=== PATIENT | female | born 1930 | race Caucasian/White ===

== ENCOUNTER 2018-06-22 09:21 | Emergency (ER) | payer OTHER ==
[2018-06-22 09:41] VITALS: TEMP 97.2
[2018-06-22 12:01] VITALS: RESP 20
[2018-06-22 12:02] VITALS: BP 136/116; PULSE 81; O2SAT 94
== END 2018-06-22 11:54 | disposition home or self-care (01) | DRG 204 ==
LOC: ED 09:21
DX: R06.02 Shortness of breath (principal)
CPT/HCPCS: 71045; 93005; 99284

== ENCOUNTER 2018-09-30 23:56 | Emergency (ER) | payer OTHER ==
[2018-09-30] MEDS ORDERED: DEXTROSE/SALINE 0.45% 1,000 ML IV ONE (23:59)
[2018-10-01 00:22] LABS: BASOPHILS % (AUTO) 0 % (0-3); EOSINOPHILS % (AUTO) 0 % (0-9); HEMATOCRIT 37 % (35-47); HEMOGLOBIN 12.1 gm/dl (12.0-15.5); LYMPHOCYTES % (AUTO) 8.8 % (10-50); MEAN CORPUSCULAR HEMOGLOBIN 31.5 pg (27.0-32.0); MEAN CORPUSCULAR HGB CONC 32.6 gm/dl (32.0-36.0); MEAN CORPUSCULAR VOLUME 97 fL (81-99); MONOCYTES % (AUTO) 7.5 % (0-12); NEUTROPHILS % (AUTO) 83.1 % (37-80)
[2018-10-01] MEDS ORDERED: METOPROLOL TARTRATE 25 MG TAB ONE (00:30)
[2018-10-01] MEDS ORDERED: METOPROLOL SUCCINATE 50 MG ER TAB ONE (00:33)
[2018-10-01 00:42] LABS: ALBUMIN 3.6 gm/dl (3.4-5.0); BILIRUBIN,TOTAL 0.8 mg/dl (0.2-1.0); CALCIUM 9.2 mg/dl (8.5-10.1); CARBON DIOXIDE 22.7 mEq/L (21-32); CREATININE 1.46 mg/dl (0.60-1.00); POTASSIUM 4.3 mMol/L (3.5-5.1); TOTAL PROTEIN 6.8 gm/dl (6.4-8.2)
[2018-10-01 00:44] LABS: INR 2.05 (0.86-1.12)
[2018-10-01 00:50] LABS: APPEARANCE,URINE Slightly Cloudy; BILIRUBIN,URINE NEGATIVE (NEGATIVE); COLOR,URINE Yellow; GLUCOSE, URINE (UA) NEGATIVE (NEGATIVE); KETONES,URINE TRACE (NEGATIVE); LEUKOCYTE ESTERASE ,URINE TRACE (NEGATIVE); NITRATE,URINE NEGATIVE (NEGATIVE); OCCULT BLOOD,URINE TRACE LYSED (NEG-TRACE); UROBILINOGEN,URINE 0.2 (0.2-1.0 EU)
[2018-10-01 01:02] LABS: EPITHELIAL CELLS 0-2 (SQUAMOUS); RBC,URINE 0-2 (0-3AV/HPF)
[2018-10-01 01:03] LABS: BACTERIA 2+ (< 1+); CRYSTALS NEGATIVE (0-3 AVE/HPF)
[2018-10-01] MEDS ORDERED: METOPROLOL SUCCINATE 50 MG ER TAB PO ONE (01:07)
[2018-10-01 02:06] VITALS: BP 159/108; PULSE 111; RESP 20; O2SAT 93
[2018-10-01] MEDS ORDERED: METOPROLOL SUCCINATE 50 MG ER TAB PO SCH (09:00)
== END 2018-10-01 01:53 | disposition home or self-care (01) | DRG 641 ==
LOC: ED 23:56
DX: E16.2 Hypoglycemia, unspecified (principal); N39.0 Urinary tract infection, site not specified; I50.9 Heart failure, unspecified; E11.9 Type 2 diabetes mellitus without complications; Z79.01 Long term (current) use of anticoagulants
CPT/HCPCS: 36415; 80053; 81001; 82962; 83880; 85025; 85610; 87077; 87088; 87186; 93005; 96365; 99284; 99285; A9270-GY

== ENCOUNTER 2018-10-03 23:02 | Observation (INO) | payer OTHER ==
[2018-10-03] MEDS ORDERED: DEXTROSE 50% 1 VIAL SOL IV ONE ×2 (23:10)
[2018-10-03] MEDS ORDERED: DEXTROSE/SALINE 0.45/KCL 20MEQ 1,000 ML/1,000 ML SOL IV ONE (23:12)
[2018-10-03] MEDS ORDERED: POTASSIUM CHLORIDE 2 MEQ/ML SOL IV ONE (23:28)
[2018-10-03 23:40] LABS: HEMATOCRIT 35 % (35-47); HEMOGLOBIN 11.2 gm/dl (12.0-15.5); MEAN CORPUSCULAR HEMOGLOBIN 30.6 pg (27.0-32.0); MEAN CORPUSCULAR HGB CONC 31.6 gm/dl (32.0-36.0); MEAN CORPUSCULAR VOLUME 97 fL (81-99)
[2018-10-03 23:48] LABS: CALCIUM 8.5 mg/dl (8.5-10.1); CARBON DIOXIDE 25.2 mEq/L (21-32); CREATININE 1.52 mg/dl (0.60-1.00); POTASSIUM 3.3 mMol/L (3.5-5.1)
[2018-10-04 00:22] LABS: BAND NEUTROPHILS % (MANUAL) 11 %; BASOPHILS % (MANUAL) 0 % (0-3); EOSINOPHILS % (MANUAL) 1 % (0-9); LYMPHOCYTES % (MANUAL) 3 % (10-50); MONOCYTES % (MANUAL) 2 % (0-12); NEUTROPHILS % (MANUAL) 83 % (37-80)
[2018-10-04 00:23] LABS: OVALOCYTES PRESENT; POIKILOCYTOSIS MOD AMT
[2018-10-04] MEDS ORDERED: DEXTROSE/SALINE 0.45/KCL 20MEQ 1,000 ML/1,000 ML SOL IV SCH (00:45)
[2018-10-04 01:17] VITALS: RESP 24
[2018-10-04] MEDS ORDERED: LEVOTHYROXINE SODIUM 88 MCG TAB PO SCH (07:00)
[2018-10-04 07:18] LABS: CARBON DIOXIDE 22.8 mEq/L (21-32); CREATININE 1.43 mg/dl (0.60-1.00); POTASSIUM 3.7 mMol/L (3.5-5.1)
[2018-10-04 07:55] LABS: INR 3.9 (0.86-1.12)
[2018-10-04] MEDS ORDERED: SODIUM CHLORIDE 0.9% FLUSH 10 ML SOL IV SCH (08:00)
[2018-10-04] MEDS ORDERED: METOPROLOL SUCCINATE 25 MG TAB.ER.24H PO SCH (09:00)
[2018-10-04] MEDS ORDERED: NITROFURANTOIN 100 MG CAP PO SCH (09:00)
[2018-10-04] MEDS ORDERED: LOSARTAN POTASSIUM 50 MG TAB PO SCH (09:00)
[2018-10-04 10:13] VITALS: BP 94/67; PULSE 94; TEMP 98.3; O2SAT 95
[2018-10-04 11:11] LABS: APPEARANCE,URINE Clear; BILIRUBIN,URINE NEGATIVE (NEGATIVE); COLOR,URINE Dark yellow; GLUCOSE, URINE (UA) NEGATIVE (NEGATIVE); KETONES,URINE NEGATIVE (NEGATIVE); LEUKOCYTE ESTERASE ,URINE 1+ (NEGATIVE); NITRATE,URINE NEGATIVE (NEGATIVE); OCCULT BLOOD,URINE NEGATIVE (NEG-TRACE); UROBILINOGEN,URINE 0.2 (0.2-1.0 EU)
[2018-10-04 11:39] LABS: BACTERIA 2+ (< 1+); CRYSTALS NEGATIVE (0-3 AVE/HPF); RBC,URINE 0-2 (0-3AV/HPF)
[2018-10-04] MEDS ORDERED: LATANOPROST 0.005% SOL EACHEYE SCH (18:00)
[2018-10-04] MEDS ORDERED: WARFARIN SODIUM 2.5 MG TAB PO SCH (18:00)
[2018-10-04] MEDS ORDERED: METOPROLOL SUCCINATE 50 MG ER TAB PO SCH (21:00)
[2018-10-06] MEDS ORDERED: WARFARIN SODIUM 5 MG TAB PO SCH ×2 (00:38→18:00)
== END 2018-10-04 14:35 | disposition home or self-care (01) | DRG 639 ==
LOC: ED 23:02 → ACUTE CARE 10-04 00:27
PROVIDERS: ADMIT Family Medicine; ATTEND Family Medicine
DX: E11.649 Type 2 diabetes mellitus with hypoglycemia without coma (principal); I48.91 Unspecified atrial fibrillation; E03.9 Hypothyroidism, unspecified; I10 Essential (primary) hypertension; Z95.0 Presence of cardiac pacemaker
CPT/HCPCS: 36415; 51798; 80048; 81001; 82962; 85007; 85027; 85610; 87088; 96365; 96374; 99219; 99284; J3480; A9270-GY

== ENCOUNTER 2018-11-29 13:45 | Inpatient (IN) | payer OTHER ==
[2018-11-29] MEDS ORDERED: DEXTROSE 50% 1 VIAL SOL IV ONE ×2 (13:53)
[2018-11-29] MEDS: SODIUM CHLORIDE 0.9% FLUSH 10 ML SOL IV PRN ×3 (13:54→18:38)
[2018-11-29 14:03] LABS: BASOPHILS % (AUTO) 0 % (0-3); EOSINOPHILS % (AUTO) 0 % (0-9); HEMATOCRIT 35 % (35-47); HEMOGLOBIN 11.1 gm/dl (12.0-15.5); LYMPHOCYTES % (AUTO) 7.4 % (10-50); MEAN CORPUSCULAR HEMOGLOBIN 31.1 pg (27.0-32.0); MEAN CORPUSCULAR HGB CONC 31.7 gm/dl (32.0-36.0); MEAN CORPUSCULAR VOLUME 98 fL (81-99); MONOCYTES % (AUTO) 5.9 % (0-12); NEUTROPHILS % (AUTO) 86.2 % (37-80)
[2018-11-29 14:05] LABS: CALCIUM 9.2 mg/dl (8.5-10.1); CARBON DIOXIDE 17.1 mEq/L (21-32); CREATININE 2.4 mg/dl (0.60-1.00); POTASSIUM 5.5 mMol/L (3.5-5.1)
[2018-11-29 14:54] LABS: APPEARANCE,URINE Clear; BILIRUBIN,URINE 1+ (NEGATIVE); COLOR,URINE Dark yellow; GLUCOSE, URINE (UA) NEGATIVE (NEGATIVE); KETONES,URINE TRACE (NEGATIVE); LEUKOCYTE ESTERASE ,URINE NEGATIVE (NEGATIVE); NITRATE,URINE NEGATIVE (NEGATIVE); OCCULT BLOOD,URINE NEGATIVE (NEG-TRACE)
[2018-11-29 15:03] LABS: BACTERIA 4+ (< 1+); CRYSTALS NEGATIVE (0-3 AVE/HPF); ICTOTEST,URINE NEGATIVE (NEGATIVE); RBC,URINE 0-2 (0-3AV/HPF)
[2018-11-29] MEDS ORDERED: PIPERACILLIN/TAZOBACT 3.375 GM 3.375 GM in SODIUM CHLORIDE 0.9% 100 ML 100 ML IV ONE (15:36)
[2018-11-29] MEDS ORDERED: FUROSEMIDE 100 MG SOL IV ONE (15:36)
[2018-11-29] MEDS ORDERED: FUROSEMIDE 20mg SOL ONE (16:11)
[2018-11-29] MEDS ORDERED: PIPERACILLIN/TAZOBACT 3.375 GM PDS IV ONE ×2 (16:12→22:32)
[2018-11-29 17:10] LABS: INR 4.76 (0.86-1.12)
[2018-11-29] MEDS: NOVOLOG FLEXPEN SC SCH ×2 (18:30→21:30)
[2018-11-29] MEDS: ALBUTEROL NEB SOL 2.5MG/3ML 1 VIAL SOL NEB PRN (18:31)
[2018-11-29] MEDS: WARFARIN SODIUM 2.5 MG TAB PO SCH (18:35)
[2018-11-29] MEDS: METFORMIN HYDROCHLORIDE 500 MG TAB PO SCH (18:37)
[2018-11-29] MEDS: FUROSEMIDE 20mg SOL IV SCH (18:38)
[2018-11-29] MEDS ORDERED: PIPERACILLIN/TAZOBACT 3.375 GM 3.375 GM in SODIUM CHLORIDE 0.9% 100 ML 100 ML IV SCH (20:00)
[2018-11-29] MEDS ORDERED: LOSARTAN POTASSIUM PO SCH (21:00)
[2018-11-29] MEDS ORDERED: METOPROLOL SUCCINATE 25 MG TAB.ER.24H PO SCH (21:00)
[2018-11-29] MEDS ORDERED: METOPROLOL TARTRATE 50 MG TAB ONE (21:25)
[2018-11-29] MEDS ORDERED: METOPROLOL SUCCINATE 50 MG ER TAB ONE (21:27)
[2018-11-29] MEDS: LOSARTAN POTASSIUM 50 MG TAB PO SCH (21:29)
[2018-11-29] MEDS: LATANOPROST 0.005% SOL EACHEYE SCH (21:33)
[2018-11-29] MEDS ORDERED: SODIUM CHLORIDE 0.9% 100 ML 100 ML IV ONE (22:32)
[2018-11-29] MEDS: PIPERACILLIN/TAZOBACT 3.375 GM 2.25 GM in SODIUM CHLORIDE 0.9% 100 ML 100 ML IV SCH (23:30)
[2018-11-30] MEDS: ALBUTEROL NEB SOL 2.5MG/3ML 1 VIAL SOL NEB PRN (03:32)
[2018-11-30] MEDS ORDERED: LEVOTHYROXINE SODIUM 88 MCG PO SCH (06:00)
[2018-11-30] MEDS: SODIUM CHLORIDE 0.9% FLUSH 10 ML SOL IV PRN ×4 (06:29→20:43)
[2018-11-30] MEDS: FUROSEMIDE 20mg SOL IV SCH ×2 (06:29→20:43)
[2018-11-30] MEDS: LEVOTHYROXINE SODIUM 50 MCG TAB PO SCH (06:29)
[2018-11-30 07:30] LABS: INR 3.62 (0.86-1.12)
[2018-11-30 07:35] LABS: CALCIUM 8.9 mg/dl (8.5-10.1); CARBON DIOXIDE 20.2 mEq/L (21-32); CREATININE 2.34 mg/dl (0.60-1.00); POTASSIUM 4.1 mMol/L (3.5-5.1)
[2018-11-30] MEDS ORDERED: SODIUM CHLORIDE 0.9% 100 ML 100 ML IV ONE ×2 (08:17→16:17)
[2018-11-30] MEDS ORDERED: PIPERACILLIN/TAZOBACT 3.375 GM PDS IV ONE ×2 (08:17→16:16)
[2018-11-30] MEDS: PIPERACILLIN/TAZOBACT 3.375 GM 2.25 GM in SODIUM CHLORIDE 0.9% 100 ML 100 ML IV SCH ×2 (08:30→16:30)
[2018-11-30] MEDS: NOVOLOG FLEXPEN SC SCH ×4 (08:47→20:45)
[2018-11-30] MEDS ORDERED: METOPROLOL SUCCINATE 25 MG TAB.ER.24H PO SCH (09:00)
[2018-11-30] MEDS ORDERED: METOPROLOL SUCCINATE 50 MG ER TAB ONE (09:53)
[2018-11-30] MEDS: METFORMIN HYDROCHLORIDE 500 MG TAB PO SCH (10:36)
[2018-11-30] MEDS: METOPROLOL SUCCINATE 50 MG TER PO SCH (10:38)
[2018-11-30] MEDS: WARFARIN SODIUM 5 MG TAB PO SCH (20:36)
[2018-11-30] MEDS: LOSARTAN POTASSIUM 50 MG TAB PO SCH (20:42)
[2018-11-30] MEDS: LATANOPROST 0.005% SOL EACHEYE SCH (20:48)
[2018-12-01] MEDS: PIPERACILLIN/TAZOBACT 3.375 GM 2.25 GM in SODIUM CHLORIDE 0.9% 100 ML 100 ML IV SCH ×2 (00:50→08:10)
[2018-12-01] MEDS ORDERED: PIPERACILLIN/TAZOBACT 3.375 GM PDS IV ONE ×2 (01:18→07:54)
[2018-12-01] MEDS ORDERED: SODIUM CHLORIDE 0.9% 100 ML 100 ML IV ONE ×2 (01:19→07:54)
[2018-12-01] MEDS: LEVOTHYROXINE SODIUM 50 MCG TAB PO SCH (06:34)
[2018-12-01] MEDS: FUROSEMIDE 20mg SOL IV SCH (06:40)
[2018-12-01] MEDS: NOVOLOG FLEXPEN SC SCH ×4 (07:46→20:41)
[2018-12-01 08:22] LABS: CALCIUM 8.4 mg/dl (8.5-10.1); CARBON DIOXIDE 25.8 mEq/L (21-32); CREATININE 1.81 mg/dl (0.60-1.00); POTASSIUM 3.1 mMol/L (3.5-5.1)
[2018-12-01 08:43] LABS: INR 2.39 (0.86-1.12)
[2018-12-01] MEDS: METOPROLOL SUCCINATE 50 MG TER PO SCH (09:44)
[2018-12-01] MEDS: FUROSEMIDE 80 MG TAB PO SCH (12:21)
[2018-12-01] MEDS: POTASSIUM CHLORIDE 10 MEQ TER PO SCH ×3 (12:22→19:09)
[2018-12-01] MEDS ORDERED: CIPROFLOXACIN HCL 500 MG TAB PO SCH (14:28)
[2018-12-01] MEDS: CIPROFLOXACIN HCL 500 MG TAB PO SCH (15:48)
[2018-12-01] MEDS: WARFARIN SODIUM 2.5 MG TAB PO SCH (19:09)
[2018-12-01] MEDS: LATANOPROST 0.005% SOL EACHEYE SCH (20:41)
[2018-12-01] MEDS: LOSARTAN POTASSIUM 50 MG TAB PO SCH (20:43)
[2018-12-02] MEDS: LEVOTHYROXINE SODIUM 50 MCG TAB PO SCH (06:23)
[2018-12-02 07:34] LABS: CALCIUM 8.3 mg/dl (8.5-10.1); CARBON DIOXIDE 28.1 mEq/L (21-32); CREATININE 1.62 mg/dl (0.60-1.00); POTASSIUM 3.9 mMol/L (3.5-5.1)
[2018-12-02 07:41] LABS: INR 2.28 (0.86-1.12)
[2018-12-02] MEDS: NOVOLOG FLEXPEN SC SCH ×4 (07:52→20:28)
[2018-12-02] MEDS: FUROSEMIDE 80 MG TAB PO SCH (08:00)
[2018-12-02] MEDS: METOPROLOL SUCCINATE 50 MG TER PO SCH (08:01)
[2018-12-02] MEDS: CIPROFLOXACIN HCL 500 MG TAB PO SCH (11:16)
[2018-12-02] MEDS: WARFARIN SODIUM 2.5 MG TAB PO SCH (17:46)
[2018-12-02] MEDS: LOSARTAN POTASSIUM 50 MG TAB PO SCH (20:29)
[2018-12-02] MEDS: LATANOPROST 0.005% SOL EACHEYE SCH (20:30)
[2018-12-03] MEDS: CIPROFLOXACIN HCL 500 MG TAB PO SCH ×2 (03:01→21:52)
[2018-12-03] MEDS: LEVOTHYROXINE SODIUM 50 MCG TAB PO SCH (06:14)
[2018-12-03] MEDS: NOVOLOG FLEXPEN SC SCH ×4 (08:22→20:49)
[2018-12-03] MEDS ORDERED: METOPROLOL SUCCINATE 50 MG TER PO SCH (08:28)
[2018-12-03] MEDS: FUROSEMIDE 80 MG TAB PO SCH (08:55)
[2018-12-03] MEDS: GLIMEPIRIDE 2 MG TAB PO SCH (10:29)
[2018-12-03] MEDS ORDERED: PATIENT EDUCATION 1 MISC PRN (10:38)
[2018-12-03] MEDS ORDERED: METOPROLOL TARTRATE 25 MG TAB PO ONE (10:44)
[2018-12-03] MEDS: SODIUM CHLORIDE 0.9% FLUSH 10 ML SOL IV PRN (12:17)
[2018-12-03] MEDS: WARFARIN SODIUM 5 MG TAB PO SCH (18:47)
[2018-12-03] MEDS: LATANOPROST 0.005% SOL EACHEYE SCH (21:52)
[2018-12-03] MEDS: LOSARTAN POTASSIUM 50 MG TAB PO SCH (21:52)
[2018-12-03] MEDS: METOPROLOL TARTRATE 50 MG TAB PO SCH (21:57)
[2018-12-04] MEDS: LEVOTHYROXINE SODIUM 50 MCG TAB PO SCH (06:43)
[2018-12-04 07:22] LABS: CALCIUM 7.9 mg/dl (8.5-10.1); CREATININE 1.32 mg/dl (0.60-1.00); POTASSIUM 3.4 mMol/L (3.5-5.1)
[2018-12-04 07:34] LABS: BASOPHILS % (AUTO) 2 % (0-3); EOSINOPHILS % (AUTO) 3 % (0-9); HEMATOCRIT 34 % (35-47); HEMOGLOBIN 10.8 gm/dl (12.0-15.5); LYMPHOCYTES % (AUTO) 14.5 % (10-50); MEAN CORPUSCULAR HEMOGLOBIN 30.8 pg (27.0-32.0); MEAN CORPUSCULAR HGB CONC 31.3 gm/dl (32.0-36.0); MEAN CORPUSCULAR VOLUME 98 fL (81-99); NEUTROPHILS % (AUTO) 68.6 % (37-80)
[2018-12-04] MEDS ORDERED: AMIODARONE 200 MG TAB PO SCH ×2 (08:30→21:00)
[2018-12-04] MEDS: NOVOLOG FLEXPEN SC SCH ×4 (08:33→21:32)
[2018-12-04] MEDS: GLIMEPIRIDE 2 MG TAB PO SCH (09:18)
[2018-12-04] MEDS: METOPROLOL TARTRATE 50 MG TAB PO SCH ×2 (09:20→21:28)
[2018-12-04] MEDS: FUROSEMIDE 80 MG TAB PO SCH (09:20)
[2018-12-04] MEDS: CIPROFLOXACIN HCL 500 MG TAB PO SCH (17:08)
[2018-12-04] MEDS ORDERED: WARFARIN SODIUM 2.5 MG TAB PO SCH (18:00)
[2018-12-04] MEDS: LOSARTAN POTASSIUM 50 MG TAB PO SCH (21:27)
[2018-12-04] MEDS: AMIODARONE 200 MG TAB PO SCH (21:27)
[2018-12-04] MEDS: SODIUM CHLORIDE 0.9% FLUSH 10 ML SOL IV PRN (21:34)
[2018-12-04] MEDS: LATANOPROST 0.005% SOL EACHEYE SCH (21:34)
[2018-12-05] MEDS: LEVOTHYROXINE SODIUM 50 MCG TAB PO SCH (06:49)
[2018-12-05 07:59] LABS: INR 2.41 (0.86-1.12)
[2018-12-05] MEDS: NOVOLOG FLEXPEN SC SCH ×4 (09:11→20:55)
[2018-12-05] MEDS: GLIMEPIRIDE 2 MG TAB PO SCH (09:12)
[2018-12-05] MEDS: AMIODARONE 200 MG TAB PO SCH ×2 (09:12→20:54)
[2018-12-05] MEDS: FUROSEMIDE 80 MG TAB PO SCH (09:13)
[2018-12-05] MEDS: METOPROLOL TARTRATE 50 MG TAB PO SCH ×2 (09:13→20:53)
[2018-12-05] MEDS: CIPROFLOXACIN HCL 500 MG TAB PO SCH (09:13)
[2018-12-05] MEDS ORDERED: WARFARIN SODIUM 5 MG TAB PO SCH (18:00)
[2018-12-05] MEDS: LATANOPROST 0.005% SOL EACHEYE SCH (20:55)
[2018-12-06 00:41] VITALS: RESP 18
[2018-12-06] MEDS: LEVOTHYROXINE SODIUM 50 MCG TAB PO SCH (06:53)
[2018-12-06 07:12] LABS: BASOPHILS % (AUTO) 1 % (0-3); EOSINOPHILS % (AUTO) 3 % (0-9); HEMATOCRIT 31 % (35-47); HEMOGLOBIN 10.3 gm/dl (12.0-15.5); LYMPHOCYTES % (AUTO) 16.7 % (10-50); MEAN CORPUSCULAR HEMOGLOBIN 31.8 pg (27.0-32.0); MEAN CORPUSCULAR HGB CONC 33.1 gm/dl (32.0-36.0); MEAN CORPUSCULAR VOLUME 96 fL (81-99); MONOCYTES % (AUTO) 8.5 % (0-12); NEUTROPHILS % (AUTO) 71.2 % (37-80)
[2018-12-06 07:19] LABS: CALCIUM 7.7 mg/dl (8.5-10.1); CARBON DIOXIDE 32.4 mEq/L (21-32); CREATININE 1.61 mg/dl (0.60-1.00); POTASSIUM 3.2 mMol/L (3.5-5.1)
[2018-12-06] MEDS: NOVOLOG FLEXPEN SC SCH ×2 (08:40→12:39)
[2018-12-06] MEDS ORDERED: POTASSIUM CHLORIDE 10 MEQ TER PO SCH (09:00)
[2018-12-06] MEDS: FUROSEMIDE 80 MG TAB PO SCH (10:05)
[2018-12-06] MEDS: AMIODARONE 200 MG TAB PO SCH (10:05)
[2018-12-06] MEDS: METOPROLOL TARTRATE 50 MG TAB PO SCH (10:07)
[2018-12-06] MEDS: GLIMEPIRIDE 2 MG TAB PO SCH (10:08)
[2018-12-06] MEDS: POTASSIUM CHLORIDE 10 MEQ TER PO SCH ×2 (10:11→12:39)
[2018-12-06 16:38] VITALS: O2SAT 96
[2018-12-06 16:39] VITALS: BP 87/66; PULSE 72; TEMP 97.9
== END 2018-12-06 14:45 | disposition home or self-care (01) | DRG 690 ==
LOC: ED 13:45 → UNDOADMIN 16:21 → ACUTE CARE 16:21
PROVIDERS: ADMIT Family Medicine; ATTEND Family Medicine
PROC: F01K5ZZ Range of Motion and Joint Integrity Assessment of Musculoskeletal System - Upper Back / Upper Extremity (ICD-10-PCS; principal; 2018-12-03)
PROC: F01K0ZZ Muscle Performance Assessment of Musculoskeletal System - Upper Back / Upper Extremity (ICD-10-PCS; 2018-12-03)
PROC: F02Z0FZ Bathing/Showering Assessment using Assistive, Adaptive, Supportive or Protective Equipment (ICD-10-PCS; 2018-12-03)
PROC: F02Z3FZ Grooming/Personal Hygiene Assessment using Assistive, Adaptive, Supportive or Protective Equipment (ICD-10-PCS; 2018-12-03)
PROC: F01ZBZZ Bed Mobility Assessment (ICD-10-PCS; 2018-12-03)
PROC: F01ZCFZ Transfer Assessment using Assistive, Adaptive, Supportive or Protective Equipment (ICD-10-PCS; 2018-12-03)
DX: N39.0 Urinary tract infection, site not specified (principal); I50.9 Heart failure, unspecified; E16.2 Hypoglycemia, unspecified; N30.00 Acute cystitis without hematuria; R53.83 Other fatigue; E11.9 Type 2 diabetes mellitus without complications; E11.22 Type 2 diabetes mellitus with diabetic chronic kidney disease; R32 Unspecified urinary incontinence; N18.9 Chronic kidney disease, unspecified; E11.649 Type 2 diabetes mellitus with hypoglycemia without coma; I48.91 Unspecified atrial fibrillation; Z79.01 Long term (current) use of anticoagulants; E03.9 Hypothyroidism, unspecified; R19.7 Diarrhea, unspecified; E87.6 Hypokalemia; R06.02 Shortness of breath; R41.0 Disorientation, unspecified
CPT/HCPCS: 36415; 71045; 80048; 81001; 82962; 83880; 84484; 85025; 85610; 87077; 87088; 87186; 93005; 93012; 93306; 94640; 96374; 96375; 99231; 99284; 99285; J1940; J2543; J7613; A9270-GY; J1815